=== PATIENT | female | born 1970 | race African-American/Black ===

== ENCOUNTER 2017-10-08 04:14 | Emergency (ER) | payer BC ==
--- NOTE | 2017-10-08 09:08 | CT ---
PRELIMINARY REPORT/[facility]/EMERGENCY AFTER HOURS PROCEDURE: EXAM: CT Head Without Intravenous Contrast CLINICAL HISTORY: 47 years old, female; Pain; Headache; Headache not specified; Patient HX: F47 presents to ed C/O MULLEN t hat woke her from sleeping this evening. Describes it as throbbing, pounding and sharp. Pt took 2 exc edrin migraine tablets and reports it is much improved and she is having no symptoms at this time. Pt reports HX of migraines but not that intense. TECHNIQUE: Axial computed tomography images of the head/brain without intravenous contrast. All CT scans at this facility use one or more dose reduction techniques, viz.: automated exposure control; ma/kV adjustme nt per patient size (including targeted exams where dose is matched to indication; i.e. head); or ite rative reconstruction technique. COMPARISON: No relevant prior studies available. FINDINGS: Brain: Unremarkable. No hemorrhage. No significant white matter disease. No edema. Ventricles: Unremarkable. No ventriculomegaly. Bones/joints: Unremarkable. No acute fracture. Soft tissues: Unremarkable. Sinuses: Unremarkable as visualized. No acute sinusitis. Mastoid air cells: Unremarkable as visualized. No mastoid effusion. IMPRESSION: No intracranial hemorrhage.Please see discussion above. Thank you for allowing us to participate in the care of your patient. Dictated and Authenticated by: Wei Raya MD 10/08/2017 7:09 AM Central Time ([place] & [place]) FINAL REPORT CT BRAIN WITHOUT CONTRAST: Date: 10/08/17 FINDINGS/IMPRESSION: I agree with the preliminary report given by Dr. Wei Raya of [facility]. Comparison is made with exam of 04/21/17. No CT evidence of acute intracranial process is seen. POS: [facility]
== END 2017-10-08 07:32 | disposition home or self-care (01) ==
LOC: ERS 04:14
DX: R51 Headache (principal); F41.9 Anxiety disorder, unspecified
CPT/HCPCS: 70450

== ENCOUNTER 2018-07-16 15:26 | Outpatient (CLI) | payer BC | END 2018-07-16 15:27 | disposition home or self-care (01) | LOC: BICMAMMO 15:26 | PROVIDERS: ATTEND Obstetrics & Gynecology | DX: Z12.31 Encounter for screening mammogram for malignant neoplasm of breast (principal) | CPT/HCPCS: 77063; 77067 ==

== ENCOUNTER 2018-12-02 15:15 | Outpatient (CLI) | payer BC ==
--- NOTE | 2018-12-02 16:19 | MRI ---
[facility] lumbar spine noncontrast: HISTORY: Lumbar radiculopathy. Previous lumbar fusion. COMPARISON: 03/25/2011 FINDINGS: Bilateral transpedicular screws at L4 and L5 with associated metallic susceptibility artifact. Disc p rosthesis at L4-L5. Laminectomy defect at L4-L5 Symmetric signal intensity of the paraspinal muscles. Appropriate signal intensity in the visualized solid organs Conus medullaris terminates at the superior aspect of T12 Appropriate T1 marrow signal intensity. No significant STIR hyperintensity to suggest vertebral body edema or ligamentous injury. Stable straightening of normal lumbar lordosis T12-L1:Adequate disc hydration. No significant central canal stenosis or neural foraminal L1-2:Adequate disc hydration. No significant central canal stenosis or foraminal narrowing L2-3:Adequate disc hydration. No significant central canal stenosis. Mild bilateral facet hypertrophy . Neural foramina pain. L3-4:Mild loss of disc space height. Generalized disc bulge, ligament flavum thickening and facet hyp ertrophy result in mild to moderate central canal stenosis. T2 hyperintensity in the left neural fora men and along the lateral extraforaminal aspect of the disc, compatible with annular fissure. Annular fissure abuts the foraminal and extra foraminal left L3 nerve root. Right neural foramen is patent. Mild left foraminal narrowing L4-5:Disc prosthesis. No high-grade central canal stenosis. Neural foramina are patent bilaterally. I ncidental left facet kidney is noted. L5-S1:Adequate disc hydration. There is a broad-based disc bulge with a inferior left subarticular di sc extrusion and. Halle discal cyst, measuring approximately 0.9 cm cranial caudal by 0.9 cm mediolate ral. There is encroachment in the left subarticular zone and partial obscuration of the traversing le ft S1 nerve root. Disc material also encroaches upon the right subarticular zone and partially obscur e the traversing right S1 nerve root. IMPRESSION: 1. Redemonstration of lumbar fusion changes at L4-L5. 2. Annular fissure involving the left aspect of the L3-L4 disc as described above. Annular fissure ab uts the foraminal and extraforaminal left L3 nerve root. 3. Disc protrusion with left greater than right inferior disc extrusion. Disc material is noted in spencer th subicular zones. There is left greater than right mass effect upon the traversing S1 nerve roots. There is a peridiscal cyst which partially obscures the traversing left S1 nerve root.
== END 2018-12-02 15:16 | disposition home or self-care (01) ==
LOC: SCSMRI 15:15
PROVIDERS: ATTEND Family Medicine
DX: M51.16 Intervertebral disc disorders with radiculopathy, lumbar region (principal); M48.9 Spondylopathy, unspecified; Q05.7 Lumbar spina bifida without hydrocephalus; Z98.1 Arthrodesis status
CPT/HCPCS: 72148

== ENCOUNTER 2020-09-13 13:07 | Emergency (ER) | payer BC ==
[2020-09-13] MEDS ORDERED: Ketorolac Tromethamine 30 MG/ML VIAL ONE (14:51)
--- NOTE | 2020-09-13 14:54 | RAD ---
LEFT KNEE 4 VIEWS: Date: 09/13/2020 HISTORY: Injury. COMPARISON: None. FINDINGS: Some low grade medial compartment joint space narrowing. No acute fracture or malalignment. Small per ipherally calcified phleboliths in the medial soft tissues. No significant joint effusion. IMPRESSION: Low grade medial compartment degenerative change. POS: HOME
--- NOTE | 2020-09-13 14:59 | RAD ---
LEFT ANKLE THREE VIEW: 09/13/20 HISTORY: Injury. COMPARISON: None. FINDINGS: No acute displaced fracture or malalignment. No lateral talar shift. No ankle joint effusion. Plate and screw fixation with a claw plate of the great toe. IMPRESSION: No acute osseous abnormality. POS: HOME
== END 2020-09-13 15:47 | disposition home or self-care (01) ==
LOC: ERS 13:07
DX: M25.562 Pain in left knee (principal); M25.572 Pain in left ankle and joints of left foot; G43.909 Migraine, unspecified, not intractable, without status migrainosus; Z79.899 Other long term (current) drug therapy; W19.XXXA Unspecified fall, initial encounter
CPT/HCPCS: 96372; J1885

== ENCOUNTER 2021-05-22 14:50 | Outpatient (CLI) | payer BC ==
[2021-05-22 16:30] LABS: Hemoglobin 11.9 g/dL (12.0-15.5); Mean Corpuscular HGB CONC 33.3 g/dL (32.0-36.0); Mean Corpuscular Hemoglobin 31.8 pg (27.0-33.0); Mean Corpuscular Volume 95.5 fl (81.6-98.3); Mean Platelet Volume 11.1 fl (7.4-10.4); Platelet Count 339 10x3/uL (150-450); RBC Distribution Width 13.1 % (11.5-14.5); Red Blood Cell (RBC) Count 3.74 10x6/uL (3.90-5.03); White Blood Cell (WBC) Count 7.7 10x3/uL (3.5-10.5)
[2021-05-22 16:41] LABS: Anion Gap 12 mmol/L (10-20); BUN (Urea Nitrogen) 17 mg/dL (9.8-20.1); Calc. Creatinine Clearance 0 mL/min (70-130); Carbon Dioxide 27 mmol/L (22-29); Chloride 103 mmol/L (98-107); Glucose 107 mg/dL (70-105); Potassium 4.4 mmol/L (3.5-5.1); Sodium 138 mmol/L (136-145)
[2021-05-23 00:50] LABS: SARS-CoV-2 PCR by NAA Not Detected (NotDetected)
== END 2021-05-22 14:51 | disposition home or self-care (01) ==
LOC: LABBT 14:50
PROVIDERS: ATTEND Neurological Surgery
DX: Z01.818 Encounter for other preprocedural examination (principal); M54.16 Radiculopathy, lumbar region; Z20.822 Contact with and (suspected) exposure to COVID-19
CPT/HCPCS: 80048; 85027; 93005; 93010; U0003; U0005

== ENCOUNTER 2021-05-27 06:35 | Day surgery (SDC) | payer BC ==
[2021-05-24 14:04] VITALS: BMI 29.8
[2021-05-27] MEDS ORDERED: Fentanyl 100 MCG/2 ML VIAL ONE ×3 (08:51→11:20)
[2021-05-27] MEDS ORDERED: Midazolam HCl 2 mg/2 ml Vial ONE (08:51)
[2021-05-27] MEDS ORDERED: Ketorolac Tromethamine 30 MG/ML VIAL ONE (09:03)
[2021-05-27] MEDS ORDERED: PROPOFOL 200 MG/20 ML VIAL ONE (09:03)
[2021-05-27] MEDS ORDERED: Lidocaine 1% PF 5 ML VIAL ONE (09:03)
[2021-05-27] MEDS ORDERED: Dexamethasone 20 MG/5 ML VIAL ONE (09:03)
[2021-05-27] MEDS ORDERED: Rocuronium Bromide 10 MG/ML (10ML VIAL) ONE (09:03)
[2021-05-27] MEDS ORDERED: Ondansetron PF 4 MG/2 ML Vial ONE (09:03)
[2021-05-27] MEDS ORDERED: PHENYLEPHRINE-NS 100 MCG/ML 10 ML SYRINGE ONE (09:03)
[2021-05-27] MEDS ORDERED: Glycopyrrolate 0.2 MG/ML 5 ML SYRINGE ONE (09:03)
[2021-05-27] MEDS ORDERED: Promethazine HCl 25 MG/ML VIAL IVPB PRN (09:48)
[2021-05-27] MEDS ORDERED: Ondansetron HCl/PF 4 MG/2 ML Vial IVP PRN (09:48)
[2021-05-27] MEDS ORDERED: Promethazine HCl 25 MG/ML VIAL IM PRN (09:48)
[2021-05-27] MEDS ORDERED: SUGAMMADEX SODIUM 200 MG/2 ML VIAL ONE (10:07)
[2021-05-27] MEDS ORDERED: HYDROmorphone 2 MG/ML VIAL ONE (11:20)
[2021-05-27] MEDS ORDERED: Dexamethasone 4 mg/ml Vial ONE (13:34)
[2021-05-27] MEDS ORDERED: Gabapentin 300 MG CAP ONE (13:36)
[2021-05-27] MEDS ORDERED: HYDROcodone/Acetaminophen 5/325 mg Tablet ONE ×2 (14:49→14:50)
== END 2021-05-27 16:50 | disposition home or self-care (01) ==
LOC: SDC 06:35
PROVIDERS: ATTEND Neurological Surgery
PROC: 0SG3071 Fusion of Lumbosacral Joint with Autologous Tissue Substitute, Posterior Approach, Posterior Column, Open Approach (ICD-10-PCS; principal; 2021-05-27)
DX: M51.27 Other intervertebral disc displacement, lumbosacral region (principal); M51.37 Other intervertebral disc degeneration, lumbosacral region; M54.16 Radiculopathy, lumbar region; G43.909 Migraine, unspecified, not intractable, without status migrainosus; Z79.899 Other long term (current) drug therapy; Z88.5 Allergy status to narcotic agent
CPT/HCPCS: 76000; C1713; C1768; J0690; J1100; J1170; J2250; J3010; J3370

== ENCOUNTER 2021-06-18 12:31 | Outpatient (CLI) | payer BC | END 2021-06-18 12:32 | disposition home or self-care (01) | LOC: TBSIIMAG 12:31 | PROVIDERS: ATTEND Neurological Surgery | DX: M54.16 Radiculopathy, lumbar region (principal); Z98.890 Other specified postprocedural states | CPT/HCPCS: 72100 ==

== ENCOUNTER 2025-02-28 14:08 | Outpatient (CLI) | payer MEDICARE, BC | END 2025-02-28 14:09 | disposition home or self-care (01) | LOC: SCSMRI 14:08 | PROVIDERS: ATTEND Orthopaedic Surgery | DX: R22.32 Localized swelling, mass and lump, left upper limb (principal) ==